=== PATIENT | female | born 1960 | race Caucasian/White ===

== ENCOUNTER 2016-09-09 21:10 | Emergency (ER) | payer BC ==
[~2016-09-09] VITALS: Ht 154.9 cm; Wt 59.9 kg
[2016-09-09 21:42] VITALS: BP 114/69
[2016-09-09] MEDS ORDERED: AMOXICILLIN500 MG ORAL (21:54)
--- NOTE | 2016-09-09 21:54 | Emergency Room Report ---
History of Present Illness General Chief Complaint: General Complaint Source: Patient Present Illness HPI Is a 56-year-old female with no past medical history. About a [place] said she has some throbbing pain to her right cheek area. She said it was swollen and had some drainage. She saw the Dr. in that country he was told that she had an infection. She was placed on antibiotics. She is here now because she wanted an MRI of her maxilla BC there is any sinus infection still. She said that she saw a dentist already whose told her that she has some infection of her thumb. Denies any fever chills denies any nausea vomiting. No other complaint. Allergies: Coded Allergies: No Known Allergies (Unverified , 09/09/16) Patient History Past Medical History: see triage record, old chart reviewed Past Surgical History: none Pertinent Family History: none Social History: Denies: smoking Last Menstrual Period: NA Now: No Immunizations: other Reviewed Nursing Documentation: PMH: Agreed, PSxH: Agreed Nursing Documentation-PMH Past Medical History: No Stated History Hx Hypertension: Yes Review of Systems Eye: Denies: blurred vision, eye pain ENT: Denies: ear pain, nose congestion, throat swelling Respiratory: Denies: cough, shortness of breath Cardiovascular: Denies: chest pain, palpitations Gastrointestinal: Denies: abdominal pain, diarrhea, nausea, vomiting Musculoskeletal: Denies: back pain, joint pain Skin: Denies: rash Neurological: Denies: headache, numbness Endocrine: Denies: increased thirst, increased urine Hematologic/Lymphatic: Denies: easy bruising All Other Systems: negative except mentioned in HPI Physical Exam Vital Signs Date Time Temp Pulse Resp B/P Pulse Ox O2 Delivery O2 Flow Rate FiO2 09/09/16 21:19 97.9 103 18 98 Room Air 09/09/16 21:42 114/69 vitals normal. Sp02 EP Interpretation: reviewed, normal General Appearance: well appearing, no apparent distress, alert Head: normocephalic, atraumatic Eyes: bilateral eye EOMI, bilateral eye PERRL ENT: hearing grossly normal, normal pharynx, other - poor dentition Neck: full range of motion, supple, no meningismus Respiratory: chest non-tender, lungs clear, normal breath sounds Cardiovascular #1: regular rate, rhythm, no murmur Gastrointestinal: normal bowel sounds, non tender, no mass, no organomegaly, no bruit, non-distended Musculoskeletal: back normal, gait/station normal, normal range of motion Psychiatric: mood/affect normal Skin: warm/dry Medical Decision Making Diagnostic Impression: Primary Impression: Abscess, dental ER Course Patient complaining of possible dental abscess/infection for gun. There is no evidence of any sinusitis. Explained to the patient that there is no indication for me to order an MRI of her face. This can be done as an outpatient. She need to followup with her dentist. Patient was not happy with this explanation. She thinks that she's going to if she doesn't get an MRI. I told patient that what happened to her occurred over a month ago. There is no indication for me to order an MRI. Again this can be done through her doctor as an outpatient. She also wanted to see ENT here in the ER. Again I point out that she need a referral from her doctor to see an ENT. There is no emergent need for ENT. Last Vital Signs Date Time Temp Pulse Resp B/P Pulse Ox O2 Delivery O2 Flow Rate FiO2 09/09/16 21:42 97.9 87 18 114/69 98 Room Air Status: unchanged Disposition: HOME, SELF-CARE Condition: Stable Scripts Amoxicillin* (AMOXIL*) 500 Mg Capsule 500 MG ORAL THREE TIMES A DAY, #21 CAP Prov: VLADIMIR MARCANO M.D. 09/09/16 Additional Instructions: Follow up with your doctor in 7 days. See a dentist GLORIA. Return if worse. VLADIMIR MARCANO M.D. Sep 09, 2016 21:54
[2016-09-09 21:57] VITALS: BP 114/69
== END 2016-09-09 21:57 | disposition home or self-care (01) ==
LOC: EMR 21:53
DX: K04.7 Periapical abscess without sinus (principal); I10 Essential (primary) hypertension
CPT/HCPCS: 99283